=== PATIENT | female | born 1995 | race Caucasian/White ===

== ENCOUNTER 2021-01-15 08:26 | Emergency (ER) | payer SELFPAY ==
[2021-01-15] MEDS ORDERED: LEXAPRO20 MG PO (09:18)
== END 2021-01-15 09:21 | disposition home or self-care (01) ==
LOC: ER1 08:26
DX: F41.1 Generalized anxiety disorder (principal); F32.9 Major depressive disorder, single episode, unspecified; Z76.0 Encounter for issue of repeat prescription; F17.210 Nicotine dependence, cigarettes, uncomplicated
CPT/HCPCS: 99283